=== PATIENT | male | born 1965 | race Caucasian/White ===

== ENCOUNTER 2016-07-10 14:56 | Emergency (ER) | payer BC ==
[2016-07-10 15:05] VITALS: BP 123/93
[2016-07-10] MEDS ORDERED: Aspirin 81 MG Tab.Chew PO ONE (15:09)
[2016-07-10] MEDS ORDERED: Tenecteplase 50 MG Kit ONE (15:10)
[2016-07-10] MEDS ORDERED: Aspirin 81 MG Tab.Chew ONE (15:10)
[2016-07-10] MEDS ORDERED: Tenecteplase 50 MG Kit IV STA (15:11)
[2016-07-10] MEDS ORDERED: Sodium Chloride 0.9% 10 ML Syringe FLUSH PRN (15:13)
[2016-07-10] MEDS ORDERED: Sodium Chloride 0.9% 1,000 ML ONE (15:15)
[2016-07-10] MEDS ORDERED: Sodium Chloride 0.9% 1,000 ML IV SCH (15:15)
[2016-07-10] MEDS ORDERED: Heparin Sodium/D5W 500 ML ONE (15:20)
[2016-07-10] MEDS ORDERED: Heparin Sodium 5,000 Units/ML Vial ONE (15:20)
--- NOTE | 2016-07-10 15:20 | EDM.PDOC ---
ED HPI GENERAL MEDICAL PROBLEM - General Chief Complaint: Chest Pain Stated Complaint: CHEST PAIN Time Seen by Provider: 07/10/16 15:00 Source of Information: Reports: Patient, Family (spouse), RN Notes Reviewed - History of Present Illness INITIAL COMMENTS - FREE TEXT/NARRATIVE: 50-year-old male comes in with anterior chest pain radiating to both arms. He started not feeling well about 60 minutes prior to arrival. He started having nausea and just a generalized sick feeling followed by discomfort lower anterior chest. That continues at this time. He denies history for diabetes hypertension or coronary artery disease. However he does smoke. He had been feeling well up until onset of symptoms a short time ago. He has no history of any recent trauma. No history of major stomach problem, GI bleeding or any recent surgery. Middle Chest Pain Score (Numeric/FACES): 4 - Related Data Allergies Allergy/AdvReac Type Severity Reaction Status Date / Time morphine Allergy Tachycardia Verified 07/10/16 15:35 ED ROS GENERAL - Review of Systems Review Of Systems: See Below Constitutional: Reports: Other (Onset of generalized weakness, not feeling well about one hour ago). Denies: Diaphoresis HEENT: Reports: No Symptoms Respiratory: Denies: Shortness of Breath, Pleuritic Chest Pain Cardiovascular: Reports: Chest Pain (Lower anterior chest with radiation to both arms), Lightheadedness Endocrine: Reports: Fatigue GI/Abdominal: Reports: Nausea. Denies: Abdominal Pain, Vomiting Musculoskeletal: Reports: Shoulder Pain (Bilateral), Arm Pain (Lateral) Skin: Reports: No Symptoms Neurological: Reports: Dizziness ED EXAM, GENERAL - Physical Exam Exam: See Below General Appearance: Alert, Mild Distress Eye Exam: Bilateral Eye: PERRL Throat/Mouth: Normal Inspection, Normal Oropharynx Head: Atraumatic Neck: Supple, Full Range of Motion, Other Respiratory/Chest: No Respiratory Distress, Lungs Clear Cardiovascular: Regular Rate, Rhythm GI/Abdominal: Soft, Non-Tender. No: Guarding Extremities: No: Pedal Edema, Leg Pain Neurological: Alert, Oriented, No Motor/Sensory Deficits Skin Exam: Warm, Dry, Normal Color EKG INTERPRETATION EKG Date: 07/10/16 Rhythm: NSR Rate (beats/min): 86 P-wave: present QRS: other ([address] elevation inferior leads, market ST depression V2 and V3, market ST elevation in V6) Course - Vital Signs Last Recorded V/S: Last Vital Signs Temp 96.2 F 07/10/16 15:01 Pulse 84 07/10/16 15:01 Resp 18 07/10/16 15:01 BP 123/93 H 07/10/16 15:01 Pulse Ox - Orders/Labs/Meds Orders: Active Orders 24 hr Category Date Time Status EKG 12 Lead [EKG Documentation Completion] [RC] STAT Care 07/10/16 15:13 Active Peripheral IV Care [RC] . DIRECTED Care 07/10/16 15:14 Active Chest 1V Frontal [CR] Stat Exams 07/10/16 15:13 Taken Peripheral IV Insertion Adult [OM.PC] Stat Oth 07/10/16 15:14 Ordered Labs: Laboratory Tests 07/10/16 07/10/16 Range/Units 15:10 15:10 WBC 13.14 H (4.23-9.07) K/mm3 RBC 5.38 (4.63-6.08) M/mm3 Hgb 17.0 (13.7-17.5) gm/L Hct 50.3 (40.1-51.0) % MCV 93.5 H (79.0-92.2) fl MCH 31.6 (25.7-32.2) pg MCHC 33.8 (32.2-35.5) g/dl RDW Std Deviation 45.8 H (35.1-43.9) fL Plt Count 241 (163-337) K/mm3 MPV 11.3 (9.4-12.3) fl Neut % (Auto) 63.0 (34.0-67.9) % Lymph % (Auto) 28.0 (21.8-53.1) % [place] % (Auto) 6.8 (5.3-12.2) % Eos % (Auto) 1.2 (0.8-7.0) Baso % (Auto) 0.4 (0.1-1.2) % Neut # (Auto) 8.28 H (1.78-5.38) K/mm3 Lymph # (Auto) 3.68 H (1.32-3.57) K/mm3 [place] # (Auto) 0.89 H (0.30-0.82) K/mm3 Eos # (Auto) 0.16 (0.04-0.54) K/mm3 Baso # (Auto) 0.05 (0.01-0.08) K/mm3 Sodium 142 (136-145) mEq/L Potassium 3.7 (3.5-5.1) mEq/L Chloride 105 (98-107) mEq/L Carbon Dioxide 20 L (21-32) mEq/L Anion Gap 20.7 H (5-15) BUN 25 H (7-18) mg/dL Creatinine 1.6 H (0.7-1.3) mg/dL Est Cr Clr Drug Dosing 51.64 mL/min Estimated GFR (MDRD) 46 (>60) mL/min BUN/Creatinine Ratio 15.6 (14-18) Glucose 200 H (74-106) mg/dL Calcium 9.6 (8.5-10.1) mg/dL Total Bilirubin 0.3 (0.2-1.0) mg/dL AST 15 (15-37) U/L ALT 25 (16-63) U/L Alkaline Phosphatase 71 (46-116) U/L Troponin I < 0.017 (0.00-0.056) ng/mL Total Protein 8.1 (6.4-8.2) g/dl Albumin 4.2 (3.4-5.0) g/dl Globulin 3.9 gm/dL Albumin/Globulin Ratio 1.1 (1-2) Meds: Medications Discontinued Medications Generic Name Dose Route Start Last Admin Trade Name Freq PRN Reason Stop Dose Admin Aspirin 324 mg 07/10/16 15:09 07/10/16 15:10 Aspirin PO 07/10/16 15:10 324 mg ONETIME ONE Administration Aspirin Confirm 07/10/16 15:10 07/10/16 15:20 Aspirin Administered 07/10/16 15:11 Not Given Dose 324 mg .ROUTE .STK-MED ONE Heparin Sodium (Porcine) Confirm 07/10/16 15:20 07/10/16 15:37 Heparin Sodium Administered 07/10/16 15:21 Not Given Dose 5,000 units .ROUTE .STK-MED ONE Heparin Sodium (Porcine) 4,000 units 07/10/16 15:22 07/10/16 15:23 Heparin Sodium IVPUSH 07/10/16 15:23 4,000 units .BOLUS ONE Administration Heparin Sodium (Porcine) 4,000 units 07/10/16 15:38 07/10/16 16:06 Heparin Sodium IVPUSH 07/10/16 15:39 Not Given .BOLUS STA Sodium Chloride Confirm 07/10/16 15:15 07/10/16 16:05 Normal Saline Administered 07/10/16 15:16 Not Given Dose 1,000 mls @ as directed .ROUTE .STK-MED ONE Heparin Sodium/Dextrose Confirm 07/10/16 15:20 07/10/16 16:05 Heparin 25,000 Units In D5w 500 Ml Administered 07/10/16 15:21 Not Given Dose 500 mls @ as directed .ROUTE .STK-MED ONE Heparin Sodium/Dextrose 25,000 units in 500 mls @ 19.595 mls/hr 07/10/16 15: 45 07/10/16 15:24 Heparin 25,000 Units In D5w 500 Ml IV 19.595 mls/hr TITRATE ROSARIO Administration Protocol 12 UNITS/KG/HR Sodium Chloride 1,000 mls @ 150 mls/hr 07/10/16 15:15 07/10/16 15:15 Normal Saline IV 150 mls/hr ASDIRECTED ROSARIO Administration Ondansetron HCl Confirm 07/10/16 15:32 07/10/16 15:44 Zofran Administered 07/10/16 15:33 Not Given Dose 4 mg .ROUTE .STK-MED ONE Ondansetron HCl 4 mg 07/10/16 15:43 07/10/16 15:31 Zofran IVPUSH 07/10/16 15:44 4 mg ONETIME ONE Administration Sodium Chloride 10 ml 07/10/16 15:13 07/10/16 16:04 Saline Flush FLUSH 10 ml ASDIRECTED PRN Administration Keep Vein Open Tenecteplase Confirm 07/10/16 15:10 07/10/16 15:20 Tnkase Administered 07/10/16 15:11 Not Given Dose 50 mg .ROUTE .STK-MED ONE Tenecteplase 50 mg 07/10/16 15:11 07/10/16 15:18 Tnkase IV 07/10/16 15:12 50 mg ONETIME STA Administration Protocol - Re-Assessments/Exams Free Text/Narrative Re-Assessment/Exam: 07/10/16 15:35. residential monitor shows marked ST elevation, EKG shows marked ST elevation inferior leads and also V6, mild ST elevation in V5. There is ST depression V2 and V3. Symptoms are compatible with myocardial infarction, EKG confirms that. He has no contraindications for thrombolytics, TNKase has been ordered. He also has been given aspirin 324 mg by mouth. [employer] helicopter service has been activated for rapid transport. I have visited with Dr. Jared Romero, [facility], ED he does accept patient in transfer. His been given heparin bolus of 4000 units, heparin drip running at 1000 units per hour. His discomfort continues at the 3-4 range. Blood pressure remains stable. He has had some nausea, have given Zofran 4 mg IV for that. CXR no acute findings. Critical Care time 60 minutes. This included initial eval of patient, ordering of appropriate labs, EKG, CXR, meds., screen for contraindications for thrombolytics of which there were none, interpretation of labs, EKG, CXR, transfer arrangements, visit, inform patient and family of findings and plan, reevaluation and monitering of patient condition, arrange for transfer and document all of the above. Departure - Departure Time of Disposition: 15:40 Disposition: DC/Tfer to [facility] 02 Reason for Transfer *Q: Primary PCI Indicated Condition: serious Clinical Impression: Acute myocardial infarction Qualifiers: Myocardial infarction ST status: ST elevation myocardial infarction Involved coronary artery: right coronary artery Qualified Code(s): I21.11 - ST elevation (STEMI) myocardial infarction involving right coronary artery Referrals: PCP,None [Primary Care Provider] - Forms: ED Department Discharge - My Orders Last 24 Hours: My Active Orders 07/10/16 15:13 EKG 12 Lead [EKG Documentation Completion] [RC] STAT Chest 1V Frontal [CR] Stat 07/10/16 15:14 Peripheral IV Care [RC] . DIRECTED Peripheral IV Insertion Adult [OM.PC] Stat - Assessment/Plan Last 24 Hours: My Active Orders 07/10/16 15:13 EKG 12 Lead [EKG Documentation Completion] [RC] STAT Chest 1V Frontal [CR] Stat 07/10/16 15:14 Peripheral IV Care [RC] . DIRECTED Peripheral IV Insertion Adult [OM.PC] Stat
[2016-07-10] MEDS ORDERED: Heparin Sodium 10,000 Units/1 ML MDV IVPUSH ONE (15:22)
[2016-07-10] MEDS ORDERED: Ondansetron 4 MG/2 ML SDV ONE (15:32)
[2016-07-10] MEDS ORDERED: Heparin Sodium 10,000 Units/1 ML MDV IVPUSH STA (15:38)
[2016-07-10] MEDS ORDERED: Ondansetron 4 MG/2 ML SDV IVPUSH ONE (15:43)
[2016-07-10] MEDS ORDERED: Heparin Sodium/D5W 25,000 UNITS/500 ML BAG IV SCH (15:45)
--- NOTE | 2016-07-11 08:03 | CR ---
Chest: Portable view of the chest was obtained. Comparison: No previous study. Heart size and mediastinum are normal. Lungs are clear. Bony structures are grossly intact. Impression: 1. Nothing acute is identified on portable chest x-ray. Diagnostic code #1
== END 2016-07-10 15:50 ==
LOC: JD.ED 14:56
DX: I21.11 ST elevation (STEMI) myocardial infarction involving right coronary artery (principal); Z88.5 Allergy status to narcotic agent
CPT/HCPCS: 36415; 71010; 80053; 84484; 85025; 93005; 96365; 96375; 99285; A9270; J1644; J2405; J3101; J7040; J7050; 99291

== ENCOUNTER 2020-01-06 15:02 | Emergency (ER) | payer BC ==
[2020-01-06] MEDS ORDERED: Sodium Chloride 0.9% 10 ML Syringe FLUSH PRN (15:23)
--- NOTE | 2020-01-06 15:29 | EDM.PDOC ---
ED HPI GENERAL MEDICAL PROBLEM - General Chief Complaint: Chest Pain Stated Complaint: CHEST PAIN Time Seen by Provider: 01/06/20 15:17 Source of Information: Reports: Patient, RN Notes Reviewed History Limitations: Reports: No Limitations - History of Present Illness INITIAL COMMENTS - FREE TEXT/NARRATIVE: Patient is a 54-year-old male who presents to the ED for the evaluation of his chest pressure. He notes this started around 8 PM last night, he does have a history of a heart attack 4 years ago that did require a stent in the lower part of his heart. Attendance Secretary is Dr. Hamm, primary care is Kaelyn Rodriguez. He notes that there has been constant pressure in his chest since it started, with some lightheadedness and generalized feelings of fatigue. He has not had any fevers or chills, cough or shortness of breath. He has not been around anyone else that he is known to be sick. He states he has been staying at home with his . He does not note that the pain radiates anywhere, like down his arm or up into his jaw. He became more concerned just because the pressure was not getting better. Chest Pain Score (Numeric/FACES): 4 - Related Data Allergies Allergy/AdvReac Type Severity Reaction Status Date / Time morphine Allergy Severe Tachycardia Verified 01/06/20 15:22 Home Meds: Home Meds Carvedilol [Coreg] 3.125 mg PO BID 09/07/16 [History] Isosorbide Mononitrate [Imdur] 30 mg PO BID 09/07/16 [History] Lisinopril 2.5 mg PO DAILY 09/07/16 [History] Clopidogrel Bisulfate [Plavix] 75 mg PO DAILY 01/06/20 [History] Past Medical History Cardiovascular History: Reports: MS (with stents placed in lower heart in 2016) - Past Surgical History Cardiovascular Surgical History: Reports: Coronary Artery Stent (2016, lower part of heart) Social & Family History - Caffeine Use Caffeine Use: Reports: Other Other Caffeine Use: unknown, unable to verify ED ROS GENERAL - Review of Systems Review Of Systems: Comprehensive ROS is negative, except as noted in HPI. ED EXAM, GENERAL - Physical Exam Exam: See Below Exam Limited By: No Limitations General Appearance: Alert, WD/WN, No Apparent Distress Respiratory/Chest: No Respiratory Distress, Lungs Clear, Normal Breath Sounds, No Accessory Muscle Use, Chest Non-Tender Cardiovascular: Normal Peripheral Pulses, Regular Rate, Rhythm, No Edema, No Murmur Peripheral Pulses: 2+: Radial (L), Radial (R) Extremities: Normal Inspection, Normal Capillary Refill Neurological: Alert, Oriented, Normal Cognition, No Motor/Sensory Deficits Psychiatric: Normal Affect, Normal Mood Skin Exam: Warm, Dry, Intact, Normal Color, No Rash #1 Interpretation EKG Date: 01/06/20 Time: 15:35 Rhythm: NSR Rate (Beats/Min): 91 [place]: Normal P-Wave: Present QRS: Normal ST-T: Normal QT: Normal EKG Interpretation Comments: No obvious ischemia or acute ST changes noted, reviewed by myself and Dr. Lagos. Q waves are noted in leads II, III, aVF and V6 suggesting old inferioapical MS. Course - Vital Signs Last Recorded V/S: Last Vital Signs Temp 97.3 F 01/06/20 15:15 Pulse 92 01/06/20 15:15 Resp 11 L 01/06/20 15:15 BP 134/87 01/06/20 15:15 Pulse Ox 97 01/06/20 15:15 - Orders/Labs/Meds Orders: Active Orders 24 hr Category Date Time Status EKG Documentation Completion [RC] STAT Care 01/06/20 15:23 Ordered Peripheral IV Care [RC] . DIRECTED Care 01/06/20 15:23 Ordered Sodium Chloride 0.9% [Saline Flush] Med 01/06/20 15:23 Ordered 10 ml FLUSH ASDIRECTED PRN Peripheral IV Insertion Adult [OM.PC] Stat Oth 01/06/20 15:23 Ordered Medication Orders Sodium Chloride (Saline Flush) 10 ml FLUSH ASDIRECTED PRN PRN Reason: Keep Vein Open Last Admin: 01/06/20 15:36 Dose: 10 ml Documented by: MAGDALENA Labs: Laboratory Tests 01/06/20 01/06/20 01/06/20 Range/Units 15:30 15:30 15:30 WBC 7.46 (4.23-9.07) K/mm3 RBC 4.77 (4.63-6.08) M/mm3 Hgb 14.9 (13.7-17.5) gm/dl Hct 42.9 (40.1-51.0) % MCV 89.9 (79.0-92.2) fl MCH 31.2 (25.7-32.2) pg MCHC 34.7 (32.2-35.5) g/dl RDW Std Deviation 43.1 (35.1-43.9) fL Plt Count 213 (163-337) K/mm3 MPV 11.4 (9.4-12.3) fl Neut % (Auto) 67.8 (34.0-67.9) % Lymph % (Auto) 21.4 L (21.8-53.1) % [place] % (Auto) 8.7 (5.3-12.2) % Eos % (Auto) 1.7 (0.8-7.0) Baso % (Auto) 0.4 (0.1-1.2) % Neut # (Auto) 5.05 (1.78-5.38) K/mm3 Lymph # (Auto) 1.60 (1.32-3.57) K/mm3 [place] # (Auto) 0.65 (0.30-0.82) K/mm3 Eos # (Auto) 0.13 (0.04-0.54) K/mm3 Baso # (Auto) 0.03 (0.01-0.08) K/mm3 PT 10.7 (9.7-12.0) SECONDS INR 1.00 APTT 26.6 (21.7-31.4) SECONDS Sodium 138 (136-145) mEq/L Potassium 3.9 (3.5-5.1) mEq/L Chloride 102 (98-107) mEq/L Carbon Dioxide 25 (21-32) mEq/L Anion Gap 14.9 (5-15) BUN 19 H (7-18) mg/dL Creatinine 1.3 (0.7-1.3) mg/dL Est Cr Clr Drug Dosing 60.73 mL/min Estimated GFR (MDRD) 58 (>60) mL/min BUN/Creatinine Ratio 14.6 (14-18) Glucose 97 (74-106) mg/dL Calcium 8.6 (8.5-10.1) mg/dL Magnesium 2.2 (1.8-2.4) mg/dl Total Bilirubin 0.5 (0.2-1.0) mg/dL AST 21 (15-37) U/L ALT 33 (16-63) U/L Alkaline Phosphatase 66 (46-116) U/L Troponin I < 0.017 (0.00-0.056) ng/mL NT-Pro-B Natriuret Pep (0-125) pg/mL Total Protein 7.4 (6.4-8.2) g/dl Albumin 3.9 (3.4-5.0) g/dl Globulin 3.5 gm/dL Albumin/Globulin Ratio 1.1 (1-2) 01/05/20 Range/Units 15:30 WBC (4.23-9.07) K/mm3 RBC (4.63-6.08) M/mm3 Hgb (13.7-17.5) gm/dl Hct (40.1-51.0) % MCV (79.0-92.2) fl MCH (25.7-32.2) pg MCHC (32.2-35.5) g/dl RDW Std Deviation (35.1-43.9) fL Plt Count (163-337) K/mm3 MPV (9.4-12.3) fl Neut % (Auto) (34.0-67.9) % Lymph % (Auto) (21.8-53.1) % [place] % (Auto) (5.3-12.2) % Eos % (Auto) (0.8-7.0) Baso % (Auto) (0.1-1.2) % Neut # (Auto) (1.78-5.38) K/mm3 Lymph # (Auto) (1.32-3.57) K/mm3 [place] # (Auto) (0.30-0.82) K/mm3 Eos # (Auto) (0.04-0.54) K/mm3 Baso # (Auto) (0.01-0.08) K/mm3 PT (9.7-12.0) SECONDS INR APTT (21.7-31.4) SECONDS Sodium (136-145) mEq/L Potassium (3.5-5.1) mEq/L Chloride (98-107) mEq/L Carbon Dioxide (21-32) mEq/L Anion Gap (5-15) BUN (7-18) mg/dL Creatinine (0.7-1.3) mg/dL Est Cr Clr Drug Dosing mL/min Estimated GFR (MDRD) (>60) mL/min BUN/Creatinine Ratio (14-18) Glucose (74-106) mg/dL Calcium (8.5-10.1) mg/dL Magnesium (1.8-2.4) mg/dl Total Bilirubin (0.2-1.0) mg/dL AST (15-37) U/L ALT (16-63) U/L Alkaline Phosphatase (46-116) U/L Troponin I (0.00-0.056) ng/mL NT-Pro-B Natriuret Pep 106 (0-125) pg/mL Total Protein (6.4-8.2) g/dl Albumin (3.4-5.0) g/dl Globulin gm/dL Albumin/Globulin Ratio (1-2) Meds: Medications Generic Name Dose Route Start Last Admin Trade Name Freq PRN Reason Stop Dose Admin Sodium Chloride 10 ml 01/06/20 15:23 01/06/20 15:36 Saline Flush FLUSH 10 ml ASDIRECTED PRN Administration Keep Vein Open - Re-Assessments/Exams Free Text/Narrative Re-Assessment/Exam: 01/06/20 15:30 Patient presents to the ED for evaluation of his ongoing chest pressure. Will get EKG and do cardiac rule out for symptoms. 01/06/20 16:45 Labs have been resulted and everything is within normal limits. Troponin is undetectably low. He will be discharged home with general recommendations. He notes that he was supposed to have a stress test back in October or November, but was worried about the COVID-19 virus so he subsequently canceled. He will call his primary care provider tomorrow to see if they can reschedule this for further evaluation. Departure - Departure Time of Disposition: 16:46 Disposition: Home, Self-Care 01 Condition: Good Clinical Impression: Pressure in chest Instructions: Nonspecific Chest Pain, Adult, [id number] Referrals: María Elena Rodriguez [employer] WORKER [Primary Care Provider] - Forms: ED Department Discharge Additional Instructions: You were evaluated in the ER today for your mid chest pressure. Laboratory evaluation demonstrated no remarkable findings. Your EKG was also within normal limits. You are not suffering from a heart attack at today's visit by lab standards and your EKG findings. Recommend you follow-up with your regular care provider for a rescheduling of the stress test that you were supposed to have earlier this fall. Please continue to take all other medications as previously prescribed. Please return to the ER at any time if symptoms change or worsen. Sepsis Event Note (ED) - Evaluation Sepsis Screening Result: No Definite Risk - Focused Exam Vital Signs: Vital Signs Temp Pulse Resp BP Pulse Ox 01/06/20 15:15 97.3 F 92 11 L 134/87 97 - My Orders Last 24 Hours: My Active Orders 01/06/20 15:23 EKG Documentation Completion [RC] STAT Peripheral IV Care [RC] . DIRECTED Sodium Chloride 0.9% [Saline Flush] 10 ml FLUSH ASDIRECTED PRN Peripheral IV Insertion Adult [OM.PC] Stat - Assessment/Plan Last 24 Hours: My Active Orders 01/06/20 15:23 EKG Documentation Completion [RC] STAT Peripheral IV Care [RC] . DIRECTED Sodium Chloride 0.9% [Saline Flush] 10 ml FLUSH ASDIRECTED PRN Peripheral IV Insertion Adult [OM.PC] Stat
--- NOTE | 2020-01-06 15:55 | CR ---
PROCEDURE INFORMATION: Exam: XR Chest, 1 View Exam date and time: 01/06/2020 3:20 PM Age: 54 years old Clinical indication: Chest pain; Type not specified TECHNIQUE: Imaging protocol: XR of the chest Views: 1 view. COMPARISON: CR Chest 1V Frontal 07/10/2016 3:35 PM FINDINGS: Lungs: Unremarkable. No consolidation. Pleural space: Unremarkable. No pleural effusion. No pneumothorax. Heart/Mediastinum: Unremarkable. No cardiomegaly. Bones/joints: Unremarkable. IMPRESSION: No acute findings. Thank you for allowing us to participate in the care of your patient. Dictated and Authenticated by: Bradley Ness MD 01/06/2020 4:47 PM Central Time ([place] & [place]) [place]
[2020-01-06 17:01] VITALS: BP 123/96; PULSE 79
== END 2020-01-06 17:00 | disposition home or self-care (01) ==
LOC: JD.ED 15:02
DX: R07.89 Other chest pain (principal); I25.2 Old myocardial infarction; Z88.5 Allergy status to narcotic agent; Z79.02 Long term (current) use of antithrombotics/antiplatelets; Z79.899 Other long term (current) drug therapy
CPT/HCPCS: 36415; 71045; 71045-26; 80053; 83735; 83880; 84484; 85025; 85610; 85730; 93010; 99283; 99285-25

== ENCOUNTER 2021-12-09 07:16 | Emergency (ER) | payer OTHER, BC ==
[2021-12-09] MEDS ORDERED: Ciprofloxacin 0.3% Ophth Soln 5 ML Bottle EYELF ONE (08:11)
[2021-12-09] MEDS ORDERED: Diphtheria,Pertussis(Acell),Tetanus Vaccine 0.5 ML Syringe IM ONE (08:38)
[2021-12-09] MEDS ORDERED: Lidocaine 1% 10 ML MDV ONE (08:44)
[2021-12-09] MEDS ORDERED: Ketorolac 0.5% Ophth Soln 5 ML Bottle EYELF SCH (09:00)
[2021-12-09] MEDS ORDERED: Lidocaine 1% 10 ML MDV INJECT ONE (09:25)
[2021-12-09 09:37] VITALS: BP 133/87; PULSE 72
== END 2021-12-09 09:30 | disposition home or self-care (01) ==
LOC: JD.ED 07:16
DX: S61.412A Laceration without foreign body of left hand, initial encounter (principal); I25.2 Old myocardial infarction; Z87.891 Personal history of nicotine dependence; Z23 Encounter for immunization; Z88.5 Allergy status to narcotic agent; Z79.02 Long term (current) use of antithrombotics/antiplatelets; Z79.899 Other long term (current) drug therapy; W26.0XXA Contact with knife, initial encounter; Y92.89 Other specified places as the place of occurrence of the external cause; Y99.0 Civilian activity done for income or pay
CPT/HCPCS: 12001; 90471; 90715; 99282-25

== ENCOUNTER 2024-03-23 11:03 | Emergency (ER) | payer OTHER, BC ==
[2024-03-23] MEDS ORDERED: Sodium Chloride 0.9% 10 ML Syringe FLUSH PRN (11:10)
[2024-03-23] MEDS: HYDROmorphone 0.5 MG/0.5 ML Syringe IVPUSH ONE (11:13)
[2024-03-23 11:23] LABS: BASOPHILS ABSOLUTE AUTO 0.1 K/mm3 (0.0-0.2); BASOPHILS PERCENT AUTO 0.6 % (0.0-1.0); EOSINOPHILS ABSOLUTE AUTO 0.3 K/mm3 (0.0-0.4); EOSINOPHILS PERCENT AUTO 1.3 % (0.0-6.0); HEMATOCRIT 46.4 % (42.0-52.0); HEMOGLOBIN 15.9 gm/dl (14.0-18.0); IMMATURE GRAN ABSOLUTE AUTO 0.36 K/mm3 (0.00-0.05); IMMATURE GRAN PERCENT AUTO 1.8 % (0.0-0.4); LYMPHOCYTES ABSOLUTE AUTO 3.9 K/mm3 (1.0-4.8); LYMPHOCYTES PERCENT AUTO 19.6 % (24.0-44.0); MEAN CORPUSCULAR HEMOGLOBIN 30.7 pg (28.0-32.0); MEAN CORPUSCULAR HGB CONC 34.3 g/dl (32.0-36.0); MEAN CORPUSCULAR VOLUME 89.6 fl (83.0-99.0); MEAN PLATELET VOLUME 10.4 fl (9.4-12.4); MONOCYTES ABSOLUTE AUTO 1.2 K/mm3 (0.0-0.8); MONOCYTES PERCENT AUTO 5.8 % (0.0-8.0); NEUTROPHILS ABSOLUTE AUTO 14.3 K/mm3 (1.8-7.7); NEUTROPHILS PERCENT AUTO 70.9 % (41.0-71.0); PLATELET COUNT,PLT 305 K/mm3 (150-400); RED BLOOD CELL COUNT 5.18 M/mm3 (4.52-5.90); WHITE BLOOD CELL COUNT,WBC 20.15 K/mm3 (3.9-11.3)
[2024-03-23] MEDS: Iopamidol 612 MG/ML 100 ML Bottle IVPUSH ONE (11:28)
[2024-03-23] MEDS: Sodium Chloride 0.9% 10 ML Syringe FLUSH ONE (11:28)
[2024-03-23] MEDS: HYDROmorphone 0.5 MG/0.5 ML Syringe ONE (11:40)
[2024-03-23 11:44] LABS: A/G RATIO 1.1 (1-2); ALANINE AMINOTRANSFERASE,ALT 31 U/L (16-63); ALBUMIN 3.9 g/dl (3.4-5.0); ALKALINE PHOSPHATASE 61 U/L (46-116); ANION GAP 15.3 (5-15); ASPARTATE AMNIOTRANSFERASE,AST 28 U/L (15-37); BILIRUBIN TOTAL 0.6 mg/dL (0.2-1.0); BLOOD UREA NITROGEN,BUN 21 mg/dL (7-18); CALCIUM 9.4 mg/dL (8.5-10.1); CARBON DIOXIDE,CO2 24 mEq/L (21-32); CHLORIDE,CL 103 mEq/L (98-107); CREATININE 1.4 mg/dL (0.7-1.3); ESTIMATED GFR 58 mL/min (>60); GLUCOSE RANDOM 157 mg/dL (70-99); LIPASE 40 U/L (16-77); POTASSIUM,K 3.3 mEq/L (3.5-5.1); PROTEIN TOTAL,TP 7.6 g/dl (6.4-8.2); SODIUM,NA 139 mEq/L (136-145)
[2024-03-23] MEDS: Lidocaine 1% 10 ML MDV INJECT ONE (12:00)
[2024-03-23 12:56] LABS: APPEARANCE,URINE CLEAR (Clear); BILIRUBIN,URINE NEGATIVE (Negative); COLOR,URINE YELLOW (Yellow); GLUCOSE,URINE NEGATIVE (Negative); KETONES,URINE NEGATIVE (Negative); LEUKOCYTE ESTERASE,URINE NEGATIVE (Negative); NITRITE,URINE NEGATIVE (Negative); OCCULT BLOOD,URINE NEGATIVE (Negative); PH,URINE 5.5 (5.0-8.0); PROTEIN,URINE TRACE (Negative); UROBILINOGEN,URINE 0.2 (0.2-1.0)
[2024-03-23 13:05] LABS: BARBITURATE SCREEN,URINE NEGATIVE (CUTOFF=200); BENZODIAZEPINES SCREEN,URINE NEGATIVE (CUTOFF=150); BUPRENORPHINE SCREEN,URINE NEGATIVE (CUTOFF=10); METHADONE SCREEN, URINE NEGATIVE (CUT0FF=200); METHAMPHETAMINES SCREEN, URINE NEGATIVE (CUTOFF=500); OXYCODONE SCREEN,URINE NEGATIVE (CUT0FF=100); THC SCREEN,URINE 20 NG/ML NEGATIVE (CUTOFF=50)
[2024-03-23 13:07] LABS: RBC,URINE 0-5 /hpf (0-5); WBC,URINE 0-5 /hpf (0-5)
[2024-03-23 13:08] LABS: BACTERIA,URINE FEW /hpf (FEW); EPITHELIAL CELLS,URINE 0-5 /hpf (0-5); HYALINE CASTS,URINE 0-5 /lpf (0-5); MUCUS,URINE FEW /hpf (FEW)
[2024-03-23 13:11] LABS: AMPHETAMINES SCREEN, URINE NEGATIVE (CUTOFF=500)
[2024-03-23 14:20] VITALS: BP 151/76; PULSE 102
== END 2024-03-23 13:05 ==
LOC: JD.ED 11:03
DX: S27.0XXA Traumatic pneumothorax, initial encounter (principal); S22.43XA Multiple fractures of ribs, bilateral, initial encounter for closed fracture; S06.6X0A Traumatic subarachnoid hemorrhage without loss of consciousness, initial encounter; S42.018A Nondisplaced fracture of sternal end of left clavicle, initial encounter for closed fracture; I25.2 Old myocardial infarction; Z88.5 Allergy status to narcotic agent; Z79.899 Other long term (current) drug therapy; W11.XXXA Fall on and from ladder, initial encounter; Y99.0 Civilian activity done for income or pay
CPT/HCPCS: 32551; 36415; 51702; 70450; 70450-26; 71045; 71045-26; 71260; 71260-26; 72125; 72125-26; 74177; 74177-26; 80053; 80306; 80307; 81001; 83690; 85025; 93005; 93010; 94762; 96374; 99291; 99291-25; J2003; Q9967

== ENCOUNTER 2024-04-20 18:56 | Emergency (ER) | payer OTHER, BC ==
[2024-04-20 19:19] VITALS: BP 117/94; PULSE 141
[2024-04-20] MEDS ORDERED: Naloxone 0.4 MG/ML SDV IVPUSH PRN (19:28)
[2024-04-20] MEDS: Sodium Chloride 0.9% 2,000 ML IV ONE (19:49)
[2024-04-20] MEDS: HYDROmorphone 1 MG/ML Syringe IVPUSH ONE (19:49)
[2024-04-20] MEDS: Acetaminophen 325 MG Tab PO ONE (19:49)
[2024-04-20] MEDS: Ondansetron 4 MG/2 ML SDV IVPUSH ONE ×2 (19:49)
[2024-04-20 20:35] LABS: BASOPHILS ABSOLUTE AUTO 0.1 K/mm3 (0.0-0.2); BASOPHILS PERCENT AUTO 0.6 % (0.0-1.0); EOSINOPHILS PERCENT AUTO 0.3 % (0.0-6.0); HEMATOCRIT 45.3 % (42.0-52.0); IMMATURE GRAN ABSOLUTE AUTO 0.07 K/mm3 (0.00-0.05); IMMATURE GRAN PERCENT AUTO 0.5 % (0.0-0.4); LYMPHOCYTES ABSOLUTE AUTO 0.9 K/mm3 (1.0-4.8); LYMPHOCYTES PERCENT AUTO 6.5 % (24.0-44.0); MEAN CORPUSCULAR HGB CONC 33.1 g/dl (32.0-36.0); MEAN CORPUSCULAR VOLUME 90.6 fl (83.0-99.0); MEAN PLATELET VOLUME 11.1 fl (9.4-12.4); MONOCYTES ABSOLUTE AUTO 1.2 K/mm3 (0.0-0.8); MONOCYTES PERCENT AUTO 8.7 % (0.0-8.0); NEUTROPHILS ABSOLUTE AUTO 11.5 K/mm3 (1.8-7.7); NEUTROPHILS PERCENT AUTO 83.4 % (41.0-71.0); PLATELET COUNT,PLT 230 K/mm3 (150-400); WHITE BLOOD CELL COUNT,WBC 13.82 K/mm3 (3.9-11.3)
[2024-04-20 20:49] LABS: A/G RATIO 0.8 (1-2); ALBUMIN 3.5 g/dl (3.4-5.0); BILIRUBIN TOTAL 0.9 mg/dL (0.2-1.0); CALCIUM 9.2 mg/dL (8.5-10.1); EST CRCL DRUG DOSING (CG) 75.28 mL/min; PROTEIN TOTAL,TP 7.8 g/dl (6.4-8.2)
[2024-04-20] MEDS: Iopamidol 755 Mg/ML 100 ML Bottle IVPUSH ONE (20:57)
[2024-04-20] MEDS: Sodium Chloride 0.9% 10 ML Syringe FLUSH PRN (20:57)
[2024-04-20] MEDS: Sodium Chloride 0.9% 45 ML IV SCH (20:57)
[2024-04-20] MEDS: HYDROmorphone 0.5 MG/0.5 ML Syringe IVPUSH ONE (23:02)
[2024-04-21] MEDS: HYDROmorphone 0.5 MG/0.5 ML Syringe IVPUSH ONE (02:20)
[2024-04-21] MEDS: HYDROmorphone 0.5 MG/0.5 ML Syringe ONE (02:33)
== END 2024-04-21 02:29 ==
LOC: JD.ED 18:56
DX: I26.99 Other pulmonary embolism without acute cor pulmonale (principal); J45.909 Unspecified asthma, uncomplicated; I25.2 Old myocardial infarction; Z87.820 Personal history of traumatic brain injury; Z88.5 Allergy status to narcotic agent; Z79.899 Other long term (current) drug therapy
CPT/HCPCS: 36415; 71275; 80053; 83880; 84484; 85025; 87428; 93005; 96361; 96374; 96375; 96376; 99285; A9270; J1171; J2405; J7030; Q9967